=== PATIENT | female | born 1990 | race Caucasian/White ===

== ENCOUNTER 2024-02-14 19:42 | Emergency (ER) | payer OTHER ==
[~2024-02-14] VITALS: Ht 154.9 cm; Wt 79.4 kg
[2024-02-14 20:06] VITALS: BP 119/83; PULSE 82; RESP 16; TEMP 98; O2SAT 100
[2024-02-14] MEDS ORDERED: NAPR-1704 PO (20:41)
[2024-02-14] MEDS ORDERED: CAPS1ADH5 TP (20:41)
== END 2024-02-14 20:49 | disposition home or self-care (01) ==
LOC: MED 19:42
DX: S39.012A Strain of muscle, fascia and tendon of lower back, initial encounter (principal); M25.512 Pain in left shoulder; Z90.49 Acquired absence of other specified parts of digestive tract; Z79.899 Other long term (current) drug therapy; V89.2XXA Person injured in unspecified motor-vehicle accident, traffic, initial encounter; Y93.89 Activity, other specified; Y92.410 Unspecified street and highway as the place of occurrence of the external cause; Y99.8 Other external cause status
CPT/HCPCS: 81025; 99282